=== PATIENT | female | born 1990 | race Caucasian/White ===

== ENCOUNTER 2018-10-26 01:32 | Outpatient (CLI) | payer MEDICAID, SELFPAY ==
[2018-10-26 02:12] LABS: Color, Urine Yellow (Yellow); Glucose, Dipstick Normal (Normal); Ketone-Dipstick Negative (Negative); Leukocyte Esterase-Dipstick 25 /ul (Negative); Mucous, Urine 0 SEEN /hpf (<or=2+); Nitrite-Dipstick Negative (Negative); Occult Blood-Urine 50 /ul (Negative); Protein-Dipstick Negative (Negative); Specific Gravity, Urine 1.005 (1.002-1.030); Urine Bilirubin Dipstick Negative (Negative); Urine Clarity Clear (Clear); Urine Urobilinogen Normal (Normal); Urine pH 6.5 (5.0 - 8.0)
[2018-10-26 02:14] VITALS: BMI 39.3
--- NOTE | 2018-10-26 02:18 | OB.TRI.HP_ITS ---
- Problem List (1) uterine contractions in third trimester, antepartum Status: Acute (2) History of delivery, currently in third trimester Status: Acute (3) Decreased movement affecting management of Status: Acute Qualifiers: Fetus number: single or unspecified fetus Trimester: third trimester Qualified Code(s): O36.8130 - Decreased movements, third trimester, not applicable or unspecified (4) Chronic hypertension affecting Status: Chronic History of Present Illness Date of Service: 10/26/18 Was patient seen by the physician?: No Reason For Visit: REDUCED MOVEMENT Date of Service: 10/26/18 Final DIDIER: 12/29/18 Final DIDIER Source: US <20 weeks Gestational age: 30 Weeks and 6 Days History of Present Illness: Patient is a 28 y/o presenting to triage reporting increased lower abdominal cramping and decreased movement. Patient history significant for previous pre-term delivery and chronic HTN. Patient also reports IOL for pre- eclampsia with severe features in a previous . Patient denies VB, LOF or vaginal discharge. PAtient last seen in office by a provider and cervix was closed/thick/high at that time. Patient is taking [place] injections as ordered. Allergies No Known Allergies Allergy (Verified 06/22/16 04:49) Laboratory Studies: Laboratory Tests 10/26/18 Range/Units 02:00 Urine Color Yellow (Yellow) Urine Clarity Clear (Clear) Urine pH 6.5 (5.0 - 8.0) Ur Specific [place] 1.005 (1.002-1.030) Urine Protein Negative (Negative) mg/dl Urine Glucose (UA) Normal (Normal) mg/dl Urine Ketones Negative (Negative) mg/dl Urine Occult Blood 50 H (Negative) /ul Urine Nitrite Negative (Negative) Urine Bilirubin Negative (Negative) mg/dL Urine Urobilinogen Normal (Normal) mg/dl Ur Leukocyte Esterase 25 H (Negative) /ul Review of Systems Constitutional: Denies: Chills, Fever, Weight Change HEENT: Denies: Head Aches, Sinus Congestion, Sinus Drainage Cardiovascular: Denies: Chest Pain, Palpitations Respiratory: Denies: Cough, Shortness of breath at rest, Sputum production Gastrointestinal: Denies: Abdominal Pain, Nausea, Vomiting Genitourinary: Denies: Dysuria Musculoskeletal: Denies: Joint Pain, Joint Tenderness Skin: Denies: Rash, Wounds Neurological: Denies: Numbness, Tingling, Focal weakness Psychiatric: Denies: Anxiety, Depression, Homicidal Ideations, Suicidal Ideations Hematologic/ Lymphatic: Denies: Easy Bruising, Easy Bleeding Comment: See nurses note for full ROS/PE Physical Exam Vitals: See nurses note for vital signs - patient is afebrile and normotensive General: Alert, Oriented x3, No apparent distress HEENT: Atraumatic, Normocephalic. 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 Negative for: Vulvar lesions Estimated gestational size: Appropriate for gestational size Presentation: Cephalic Cervix Dilation (cm): 0 Station: -3 Effacement (%): 0 NST - FHR Rate Baby A Baseline: 130 Variability:: Moderate Accelerations:: 15 x 15 Decelerations:: None NST Reactive:: Yes, Appropriate for gestational age FHR Category:: Category I Uterine Activity:: Uterine irritability noted most times - 1-2 palpable contractions in 20 minute period Impression/Plan 28 y/o @ 30+6 weeks, Decreased Movement, Pre-term Contractions, Category I FHT P: 1) [facility] teaching and PTL precautions reviewed 2) Cervix closed at this time - no evidence of PTL noted 3) Discharge to home - patient [facility] as scheduled. Marissa CARDOSO
[2018-10-26 02:19] LABS: Bacteria RARE /hpf (None Seen); Red Blood Cells-Urine 0-5 SEEN /hpf (0-5); Squamous Epithelial Cells - UA 0-5 SEEN /hpf (5-10); White Blood Cells 0-5 SEEN /hpf (0-5)
== END 2018-10-26 03:00 | disposition home or self-care (01) ==
LOC: WPOUT 01:38 → WP 01:40
PROVIDERS: Visit Provider Advanced Practice Midwife
DX: O36.8130 Decreased fetal movements, third trimester, not applicable or unspecified (principal); Z3A.30 30 weeks gestation of pregnancy; O16.3 Unspecified maternal hypertension, third trimester
CPT/HCPCS: 59025; 59050; 81001; 99218; G0378

== ENCOUNTER 2018-11-28 23:46 | Outpatient (CLI) | payer MEDICAID, SELFPAY ==
[2018-11-29 00:14] VITALS: BMI 38.9
--- NOTE | 2019-01-18 19:12 | OB.TRI.PN ---
Progress Notes Date of Service: 11/30/18 Progress Note: Patient presented with complaint of vaginal fluid leakage and pink discharge. O: No vaginal discharge or fluid leakage with exam per nursing. ROM plus negative FHT 135, moderate variability, accels, reactive NST Mild irregular contractions Cervical exam /-3 A: Vaginal Discharge P: 1)Negative for rupture of membranes. 2) Discharge home.
== END 2018-11-29 00:50 | disposition home or self-care (01) ==
LOC: WPOUT 11-29 00:06 → WP 11-29 00:07
PROVIDERS: Visit Provider Obstetrics & Gynecology
DX: O26.899 Other specified pregnancy related conditions, unspecified trimester (principal); N89.8 Other specified noninflammatory disorders of vagina; Z3A.00 Weeks of gestation of pregnancy not specified
CPT/HCPCS: 59025; 59050; 99218; G0378

== ENCOUNTER 2018-11-30 10:50 | Outpatient (CLI) | payer MEDICAID, SELFPAY ==
[2018-11-29 00:14] VITALS: BMI 38.9
[2018-11-30 11:05] VITALS: BMI 38.6
[2018-11-30 11:32] LABS: ROM Internal Control Test YES-OK TO RESULT pt. (Internal QC); ROM Patient Test Negative (Negative)
--- NOTE | 2018-12-02 07:51 | OB.TRI.PN ---
Progress Notes Date of Service: 11/30/18 Progress Note: Female at 35w6d for complaint of pink vaginal discharge and unsure if her water broke. Denies any vaginal bleeding or contractions. O: ROM Plus negative NST reactive 130, moderate variability, accels, no decels, no contractions A: Vaginal Discharge P: 1) ROM plus negative, no signs of active ROM per nursing. 2) Discharge home. Laboratory Studies: Laboratory Tests 11/30/18 Range/Units 11:00 Vag Amniotic Fld Detect Negative (Negative)
== END 2018-11-30 12:10 | disposition home or self-care (01) ==
LOC: WPOUT 10:56 → WP 10:56
PROVIDERS: Referring Provider Advanced Practice Midwife; Visit Provider Advanced Practice Midwife
DX: O26.893 Other specified pregnancy related conditions, third trimester (principal); N89.8 Other specified noninflammatory disorders of vagina; Z3A.35 35 weeks gestation of pregnancy
CPT/HCPCS: 59025; 59050; 84112; 99218; G0378

== ENCOUNTER 2018-12-05 11:56 | Outpatient (CLI) | payer MEDICAID, SELFPAY ==
[2018-12-05 12:40] LABS: Hematocrit 30.7 % (37-47); Hemoglobin 10.5 g/dL (12.0-15.0); Mean Corp Hgb Conc 34.2 g/dL (32-36); Mean Corpuscular Hgb 33.1 pg (27.0-32.0); Mean Corpuscular Volume 96.8 fL (81-99); Mean Platelet Vol. 11.1 fl (6.2-12.0); Platelet Count 210 K/mm3 (150-450); RBC Distribution Width CV 13.5 % (11.6-14.6); RBC Distribution Width SD 48.1 fl (35.1-43.9); Red Blood Count 3.17 M/mm3 (4.2-5.4); White Blood Count 10.8 K/mm3 (4.4-11.0)
[2018-12-05 12:45] LABS: Partial Thromboplast Time 26.9 Seconds (24.1-36.2); Prothrombin Time (Protime)PT. 12.9 SECONDS (11.7-14.9)
[2018-12-05 12:50] VITALS: BMI 38.9
[2018-12-05 13:18] LABS: AST(SGOT) 12 U/L (15-37); Alanine Aminotransfer ALT/SGPT 20 U/L (13-56); Creatinine, Serum 0.55 mg/dL (0.55-1.02); EST Glomerular Filtration Rate 141 mL/min (>60); Est Glom Filt Rate - Afr Amer 171 mL/min (>60); Estimated Creatinine Clearance 139.48 ml/min; Uric Acid 3.9 mg/dL (2.6-6.0)
[2018-12-05 13:19] LABS: Protein, Urine (Random) 15.9 mg/dL (<11.9); Protein:Creat Ratio 181 mg/g CRE (0-200)
[2018-12-05] MEDS: Nalbuphine 10 MG/ML Ampul IV (13:23)
[2018-12-05] MEDS: 0.9% Saline Lock 10 ML Syringe IV ×3 (13:24→13:40)
[2018-12-05] MEDS: proMETHazine 25 MG/ML Syringe IV (13:30)
--- NOTE | 2018-12-05 22:06 | OB.TRI.NOTE ---
History of Present Illness Reason For Visit: R/O PRE E Date of Service: 12/05/18 Final DIDIER: 12/29/18 Final DIDIER Source: US <20 weeks Gestational age: 36 Weeks and 4 Days Allergies No Known Allergies Allergy (Verified 06/22/16 04:49) Laboratory Studies: Laboratory Tests 12/05/18 12/05/18 12/05/18 Range/Units 13:00 12:25 12:25 WBC (4.4-11.0) K/mm3 RBC (4.2-5.4) M/mm3 Hgb (12.0-15.0) g/dL Hct (37-47) % MCV (81-99) fL MCH (27.0-32.0) pg MCHC (32-36) g/dL RDW Std Deviation (35.1-43.9) fl RDW Coeff of Trever (11.6-14.6) % Plt Count (150-450) K/mm3 MPV (6.2-12.0) fl PT 12.9 (11.7-14.9) SECONDS INR 1.0 APTT 26.9 (24.1-36.2) Seconds Creatinine 0.55 (0.55-1.02) mg/dL Estim Creat Clear Calc 139.48 ml/min Est GFR (MDRD) Af Amer 171 (>60) mL/min Est GFR (MDRD) Non-Af 141 (>60) mL/min Uric Acid 3.9 (2.6-6.0) mg/dL AST 12 L (15-37) U/L ALT 20 (13-56) U/L U Random Total Protein 15.9 H (<11.9) mg/dL Urine Creatinine 87.70 (NO RANGE EST.) mg/dL Protein/Creatinin Ratio 181 (0-200) mg/g CRE 12/05/18 Range/Units 12:25 WBC 10.8 (4.4-11.0) K/mm3 RBC 3.17 L (4.2-5.4) M/mm3 Hgb 10.5 L (12.0-15.0) g/dL Hct 30.7 L (37-47) % MCV 96.8 (81-99) fL MCH 33.1 H (27.0-32.0) pg MCHC 34.2 (32-36) g/dL RDW Std Deviation 48.1 H (35.1-43.9) fl RDW Coeff of Trever 13.5 (11.6-14.6) % Plt Count 210 (150-450) K/mm3 MPV 11.1 (6.2-12.0) fl PT (11.7-14.9) SECONDS INR APTT (24.1-36.2) Seconds Creatinine (0.55-1.02) mg/dL Estim Creat Clear Calc ml/min Est GFR (MDRD) Af Amer (>60) mL/min Est GFR (MDRD) Non-Af (>60) mL/min Uric Acid (2.6-6.0) mg/dL AST (15-37) U/L ALT (13-56) U/L U Random Total Protein (<11.9) mg/dL Urine Creatinine (NO RANGE EST.) mg/dL Protein/Creatinin Ratio (0-200) mg/g CRE NST - FHR Rate Baby A Baseline: 125 Variability:: Moderate Accelerations:: 15 x 15 Decelerations:: Variable NST Reactive:: Yes Uterine Activity:: quiet Impression/Plan Reactive NST for chtn and headache in Labs normal. Bp's normal to mildly elevated. (BP of 160's when patient anxious quickly resolved). Headache resolved. Patient given preE precautions by nurse & discharged home. She will f/u in office tomorrow to schedule induction.
== END 2018-12-05 16:23 | disposition home or self-care (01) ==
LOC: WPOUT 11:58 → OBT 12-06 09:39
PROVIDERS: Referring Provider Obstetrics & Gynecology; Visit Provider Obstetrics & Gynecology
DX: O10.919 Unspecified pre-existing hypertension complicating pregnancy, unspecified trimester (principal); R51 Headache; Z3A.36 36 weeks gestation of pregnancy
CPT/HCPCS: 96374; 96375; 36415; 59025; 59050; 82565; 82570; 84156; 84450; 84460; 84550; 85027; 85610; 85730; 99218; A4216; G0378

== ENCOUNTER 2018-12-10 07:05 | Inpatient (IN) | payer MEDICAID, SELFPAY ==
[2018-12-10] MEDS: Lactated Ringers 1,000 ML 50 ML IV (07:40)
[2018-12-10 07:51] VITALS: BMI 38.7
[2018-12-10 08:02] LABS: Absolute Lymphocyte Count 1.82 X10^3/uL (0.83-4.51); Absolute Neutrophil Count 8.6 X10^3/uL (2.0-7.7); Basophil# 0.02 X10^3/uL; Basophil% 0.2 % (0-1); Eosinophil# 0.18 X10^3/uL; Eosinophils% 1.6 % (0-5); Hematocrit 30.6 % (37-47); Hemoglobin 10.5 g/dL (12.0-15.0); Lymphocyte # 1.82 X10^3/ul (4.0); Lymphocyte % 16.1 % (19-41); Mean Corp Hgb Conc 34.3 g/dL (32-36); Mean Corpuscular Hgb 33.1 pg (27.0-32.0); Mean Corpuscular Volume 96.5 fL (81-99); Mean Platelet Vol. 10.9 fl (6.2-12.0); Monocyte# 0.59 X10^3/uL; Monocyte% 5.2 % (0-10); NRBC Flagged by Analyzer 0 % (0-5); Neutrophil # 8.61 X10^3/uL (2.7-7.7); Neutrophil % 76.3 % (47-70); Platelet Count 199 K/mm3 (150-450); RBC Distribution Width CV 13.7 % (11.6-14.6); RBC Distribution Width SD 48.8 fl (35.1-43.9); Red Blood Count 3.17 M/mm3 (4.2-5.4); White Blood Count 11.3 K/mm3 (4.4-11.0)
[2018-12-10] MEDS: Oxytocin 30 units/NS 500 ml 30 UNITS/500 ML IV.SOLN IV (08:12)
--- NOTE | 2018-12-10 08:34 | HP.PCM_ITS ---
History Date of Admission: 06/22/16 Final DIDIER: 12/29/18 Final DIDIER Source: US <20 weeks Gestational age: 37 Weeks and 2 Days History of this : This is a 28 year-old, G [], P [], at 37 weeks gestational age. Medical History: Medical History (Last Updated 12/10/18 @ 17:21 by Arden Lance) Depression F32.9 Chronic hypertension affecting O10.919 Allergies No Known Allergies Allergy (Verified 06/22/16 04:49) Home Medications: Home Medications Labetalol [Trandate (Beta Chencho)] 400 mg PO BID 03/21/16 Ferrous Sulfate [Iron] 325 mg PO DAILY 11/29/18 Vits [Prenatabs FA] 1 tab PO DAILY 11/29/18 Smoking Status: Current every day smoker Substance Use Type: Benzodiazepines Number of Fetus(es): 1 NST - FHR Rate Baby A Baseline: 135 Variability:: Moderate Accelerations:: None NST Reactive:: Yes Uterine Activity:: quiet History Past Pregnancies: Past Pregnancies Delivery Date Name GA/Weeks Outcome Route Weight Infant Gender Labor Length Anesthesia Delivery Location Provider FOB Labs: see [facility] prenatals Physical Exam General: Alert, Oriented x3 Abdomen: Soft, Non Tender, Non-Distended Neurological: Cranial nerves II-XII grossly intact 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 ADmit to L&D Chtn & IUGR - proceed with induction per M recommendations. Patient is s/p amniotomy & on pitocin. GBS negative. Routine care.
[2018-12-10 08:54] LABS: Amphetamine Urine VISTA NEGATIVE (<1000 ng/mL); Barbiturate Urine VISTA NEGATIVE (< 200 ng/mL); Benzodiazepine Urine VISTA NEGATIVE (< 200 ng/mL); Cocaine Urine VISTA NEGATIVE (< 300 ng/mL); Ecstacy Urine VISTA POSITIVE (< 500 ng/mL); Methadone Urine VISTA NEGATIVE (< 300 ng/mL); PCP Urine VISTA NEGATIVE (< 25 ng/mL); THC Urine VISTA NEGATIVE (< 50 ng/mL); Vista UDS pH Range 6
[2018-12-10] MEDS: Oxytocin 30 units/NS 500 ml 30 UNITS/500 ML IV.SOLN 334 UNITS IV (17:13)
--- NOTE | 2018-12-10 17:28 | PCM.OPRPT ---
Vaginal Delivery Maternal Presentation: Medically Indicated Induction Method of Induction: Pitocin, Amniotomy Medical Reason for Induction: - - (1) Chronic hypertension (2) IUGR Amniotic Fluid Description: Clear Final DIDIER: 12/29/18 Gestational age: 37 Weeks and 2 Days Date of Procedure: 12/10/18 Pre-Operative Diagnosis: (1) Chronic hypertension (2) IUGR Post-Operative Diagnosis: Same Surgery/ Procedure Performed: Spontaneous Vaginal Delivery Type of Anesthesia: None Description of Procedure: Called to room as patient was . Infant easily delivered & placed on maternal abdomen. 3VC clamped & cut in delayed fashion. Placenta delivered with gentle traction. Good uterine tone obtained. Presentation: Vertex Placental Delivery Description: Spontaneous Placenta Disposition: [facility] Cord Vessel Description: 3 Vessels Cord Entanglement: None Estimated Blood Loss: 200ml A gender: Female - Raynie (1 minute): 8 (5 minute): 9 Episiotomy Description: None Laceration: None Medications given after delivery: IV Pitocin Complications: None
[2018-12-10] MEDS: Acetaminophen 500 MG Tablet 1000 MG PO (19:34)
[2018-12-10] MEDS: 0.9% Saline Lock 10 ML Syringe IV (19:45)
[2018-12-10] MEDS: Labetalol 200 MG Tablet 400 MG PO (21:36)
[2018-12-11] VITALS (7 sets, daily range): BP systolic 114–138; BP diastolic 63–79; PULSE 62–79; RESP 16–18; TEMP 36.1–36.6; O2SAT 97–99
[2018-12-11] MEDS: Acetaminophen 500 MG Tablet 1000 MG PO (03:05)
--- NOTE | 2018-12-11 08:32 | PN.OBGYN_ITS ---
Subjective: Patient denies headache or visual changes. Average lochia. Pain well controlled. - Physical Exam General: Alert, Cooperative, No apparent distress Abdomen: Soft, Non-Distended, Tender - Minimally, fundus is firm Extremities: Edema - Trace, - - 2+ DTRs, no clonus Vital Signs Temp Pulse Resp BP Pulse Ox 97.6 F L 66 18 138/78 H 98 12/11/18 08:11 12/11/18 08:11 12/11/18 08:11 12/11/18 08:11 12/11/18 08:11 Oxygen Delivery Method Room Air Weight: 105.7 kg Body Mass Index (BMI) 38.7 Intake and Output for Last 24 Hours 12/09/18 12/10/18 12/11/18 23:59 23:59 23:59 Intake Total 979.70 / 979.70 Output Total 1900 / 1900 Balance -920.30 / -920.30 Laboratory Tests Past 24 Hrs 12/10/18 12/10/18 07:40 08:00 Urine Opiates Screen NEGATIVE Urine Methadone Screen NEGATIVE Ur Barbiturates Screen NEGATIVE Ur Phencyclidine Scrn NEGATIVE Ur Amphetamines Screen NEGATIVE U Methamphetamin-MDMA POSITIVE H U Benzodiazepines Scrn NEGATIVE Urine Cocaine Screen NEGATIVE U Cannabinoids Screen NEGATIVE Ur Drug Screen Comment Blood Type O POSITIVE Antibody Screen NEGATIVE Medical Necessity - Tobacco Use Smoking Status: Current every day smoker Assessment/Plan All Active Problems (Last Updated 12/10/18 @ 17:21 by Arden Lance) uterine contractions in third trimester, antepartum (Acute) History of delivery, currently in third trimester (Acute) Decreased movement affecting management of (Acute) day #1 status post vaginal delivery Patient is doing well, is doing well and breast-feeding. Gestational hypertension, blood pressures stable on labetalol. Patient would li ke discharge home today. No evidence of preeclampsia. Will check labs and if blood pressures and labs are normal throughout the day, would be okay to discharge home later this evening.
--- NOTE | 2018-12-11 08:34 | DCINST_ITS ---
Discharge Diet: No Restrictions Discharge Activity: Return to Normal Activity, May not drive while taking narcotic pain medications., May Shower May resume sexual activity in: 4-6 weeks Additional Activity Instructions:: Nothing in the vagina for 4-6 weeks. You may return to work/school in 6 weeks. Call your doctor if your incision/area has: Continuous Slow Oozing, Sudden Increased Bleeding, Increased Pain/ Swelling, Increased Redness, Foul Smelling Discharge Additional Instructions: If you experience any of the following, contact your healthcare provider. * Bleeding that soaks a pad every hour for 2 hours * Fever 100.4 or higher * Unrelieved incision or abdominal pain * Swelling, redness, discharge or bleeding from your incision or episiotomy site * Your incision begins to separate * Problems urinating (including inability to urinate or burning while urinating). * Visual changes * Severe headache * Flu-like symptoms * Pain or redness in one of both of your breasts * Pain, warmth, tenderness or swelling in your legs, especially the calf area * Frequent nausea and vomiting * Symptoms of depression or anxiety If you experience any of the following, call 911 or go to the nearest Emergency Room. * Chest pain * Problems breathing * Seizure activity * Partial or complete paralysis of a body part, slurred speech, weakness or drooping of the face, or a sudden inability to walk or hold your balance Allergies/Adverse Reactions: Allergies No Known Allergies Allergy (Verified 06/22/16 04:49) Medications to take at Discharge Labetalol [Trandate (Beta Chencho)] 400 mg PO BID 03/21/16 Ferrous Sulfate [Iron] 325 mg PO DAILY 11/29/18 Vits [Prenatabs FA ] 1 tab PO DAILY 11/29/18 Ibuprofen [Motrin] 600 mg PO Q6H PRN #60 tab 12/11/18 The following prescriptions were given: Ibuprofen [Motrin] 600 mg PO Q6H PRN #60 tab PRN Reason: Pain Transmission Status: Pending to [facility] Please Follow Up With: Arden Lance - [phone] When: Call to make an appointment with your doctor in 3-7 days or as needed nad 6 weeks Primary Care Physician: Care Physician,No Primary [Primary Care Provider] - Test Results: Test results from this visit will be discussed in further detail at your follow- up appointment, if applicable.
[2018-12-11] MEDS: Ibuprofen 600 MG Tablet PO ×2 (09:06→20:55)
--- NOTE | 2018-12-11 09:30 | ED.RN ---
Patient's blood pressure 117/75. Pulse 72. Dr. Kaminski was called about switching order from 400 mg of Trandate BID to 200 mg BID as patient reports her dose having to be decreased after her last . Verbal order obtained to decrease dose to Trandate 200 mg BID. Patient aware of change in dose. Will continue to monitor.
[2018-12-11] MEDS: Labetalol 200 MG Tablet PO ×2 (09:51→20:55)
[2018-12-11] MEDS: Prenatal Vits Tablet 1 TABLET PO (11:57)
[2018-12-11 14:03] LABS: Hematocrit 31.5 % (37-47); Hemoglobin 10.7 g/dL (12.0-15.0); Mean Corpuscular Hgb 32.9 pg (27.0-32.0); Mean Corpuscular Volume 96.9 fL (81-99); Mean Platelet Vol. 10.3 fl (6.2-12.0); Platelet Count 211 K/mm3 (150-450); RBC Distribution Width CV 13.3 % (11.6-14.6); RBC Distribution Width SD 47.6 fl (35.1-43.9); Red Blood Count 3.25 M/mm3 (4.2-5.4); White Blood Count 10.6 K/mm3 (4.4-11.0)
[2018-12-11 14:19] LABS: ALB/GLOB Ratio 0.7 RATIO (0.9-2.4); AST(SGOT) 17 U/L (15-37); Alanine Aminotransfer ALT/SGPT 20 U/L (13-56); Albumin, Serum 2.9 g/dL (3.2-5.0); Alkaline Phosphatase 117 U/L (45-117); Anion Gap 6 (5-15); BUN 11 mg/dL (7-18); BUN/Creat Ratio 15.2 RATIO (10-20); Calcium,Total 8.7 mg/dL (8.5-10.1); Chloride 110 mmol/L (98-107); Creatinine, Serum 0.72 mg/dL (0.55-1.02); EST Glomerular Filtration Rate 103 mL/min (>60); Est Glom Filt Rate - Afr Amer 125 mL/min (>60); Estimated Creatinine Clearance 106.55 ml/min; Globulin 3.9 g/dL (2.2-4.2); Glucose 94 mg/dL (74-106); Potassium 4.3 mmol/L (3.5-5.1); Protein, Total 6.8 g/dL (6.4-8.2); Sodium Level 140 mmol/L (136-145)
[2018-12-12 02:24] VITALS: BP 120/66; PULSE 64; RESP 18; TEMP 35.9
--- NOTE | 2018-12-12 09:09 | PCM.PN.OB ---
Subjective: pt seen at bedside, doing well. pt reports good pain control. lochia mild. - Physical Exam General: Alert, Oriented x3 Abdomen: Soft, Non Tender, Non-Distended, - - fundus firm Extremities: No Calf Tenderness Vital Signs Temp Pulse Resp BP Pulse Ox 96.6 F L 64 18 120/66 98 12/12/18 02:24 12/12/18 02:24 12/12/18 02:24 12/12/18 02:24 12/11/18 08:11 Oxygen Delivery Method Room Air Weight: 105.7 kg Body Mass Index (BMI) 38.7 Intake and Output for Last 24 Hours 12/10/18 12/11/18 12/12/18 23:59 23:59 23:59 Intake Total 979.70 / 979.70 Output Total 1900 / 1900 Balance -920.30 / -920.30 Laboratory Tests Past 24 Hrs 12/11/18 12/11/18 13:48 13:48 WBC 10.6 RBC 3.25 L Hgb 10.7 L Hct 31.5 L MCV 96.9 MCH 32.9 H MCHC 34.0 RDW Std Deviation 47.6 H RDW Coeff of Trever 13.3 Plt Count 211 MPV 10.3 Sodium 140 Potassium 4.3 Chloride 110 H Carbon Dioxide 24.0 Anion Gap 6 BUN 11 Creatinine 0.72 Estim Creat Clear Calc 106.55 Est GFR (MDRD) Af Amer 125 Est GFR (MDRD) Non-Af 103 BUN/Creatinine Ratio 15.2 Glucose 94 Calcium 8.7 Total Bilirubin 0.10 L AST 17 ALT 20 Alkaline Phosphatase 117 Total Protein 6.8 Albumin 2.9 L Globulin 3.9 Albumin/Globulin Ratio 0.7 L Medical Necessity - Tobacco Use Smoking Status: Current every day smoker Assessment/Plan All Active Problems (Last Updated 12/10/18 @ 17:21 by Arden Lance) uterine contractions in third trimester, antepartum (Acute) History of delivery, currently in third trimester (Acute) Decreased movement affecting management of (Acute) PPD#2, doing well routine care pain mgmt dc home
[2018-12-12 09:10] VITALS: BP 143/76; PULSE 75; RESP 16; TEMP 36.1; O2SAT 96
[2018-12-12 09:16] VITALS: BP 143/76; PULSE 75; RESP 16; TEMP 36.1; O2SAT 97
[2018-12-12] MEDS: Prenatal Vits Tablet 1 TABLET PO (09:32)
[2018-12-12] MEDS: Ibuprofen 600 MG Tablet PO (09:32)
== END 2018-12-12 10:10 | disposition home or self-care (01) | DRG 560 ==
PROVIDERS: Obstetrics & Gynecology; Admitting Provider Obstetrics & Gynecology; Referring Provider Obstetrics & Gynecology; Visit Provider Obstetrics & Gynecology
DX: O36.5930 Maternal care for other known or suspected poor fetal growth, third trimester, not applicable or unspecified (principal); O13.4 Gestational [pregnancy-induced] hypertension without significant proteinuria, complicating childbirth; O99.334 Smoking (tobacco) complicating childbirth; Z3A.37 37 weeks gestation of pregnancy; Z37.0 Single live birth
CPT/HCPCS: 59050; 80053; 80307; 85025; 85027; 86850; 86900; 86901; 99218; J7120; A4216; G0378

== ENCOUNTER 2018-12-16 15:25 | Emergency (ER) | payer MEDICAID, SELFPAY ==
[2018-12-16 15:27] VITALS: BP 158/89; PULSE 60; RESP 16; TEMP 36.3; O2SAT 96; BMI 36.6
--- NOTE | 2018-12-16 15:42 | RAD_ITS ---
STUDY: X-RAY - SACRUM/COCCYX REASON FOR EXAM: Female, 28 years old. back pain TECHNIQUE: 3 view(s) of the sacrum and coccyx were obtained. COMPARISON: None. FINDINGS: There is mild degenerative arthrosis of the bilateral sacroiliac joints. Normal visualized sacral ala and fused sacral bodies. Normal sacrococcygeal junction with a normal angulation. Normal coccygeal segments. There is widening of the symphysis pubis compatible with recent state. The presacral soft tissue structures are unremarkable. RAD/Sacrum-Coccyx min 2 Views IMPRESSION: mild diastases of the symphysis pubis. Degenerative changes of the SI joints which are symmetric. No visualized fracture. Electronically Signed: Evelyn Go MD at 16:59 EDT Tel , Service support ,
--- NOTE | 2018-12-16 15:42 | RAD_ITS ---
STUDY: X-RAY CHEST REASON FOR EXAM: Female, 28 years old. back pain TECHNIQUE: PA and lateral views of the chest. COMPARISON: None. FINDINGS: There is a well-circumscribed nodule within the left lower lobe measuring 0.6 mm. There is no demonstrated pleural abnormality. Normal size heart. Normal mediastinum and suman. Normal visualized pulmonary arteries. Normal visualized aortic arch and descending thoracic aorta. Normal visualized thoracic spine. Normal visualized ribs, clavicles, and shoulders. There is no demonstrated abnormality of the visualized soft tissue structures of the upper abdomen. RAD/Chest PA and Lateral IMPRESSION: Small nodule right lower lobe which most likely represents a small focus of old granulomatous disease no evidence of acute focal infiltrate. No visualized fracture. Electronically Signed: Evelyn Go MD at 16:58 EDT Tel , Service support ,
--- NOTE | 2018-12-16 15:48 | ED.VIS.GEN ---
History of Present Illness Chief Complaint: Hypertension Informant: Patient Onset: Days Context: Gradual Onset Timing: Intermittent Current Severity: Moderate Maximum Severity: Moderate Narrative: The patient presents with pain near her sacrum that radiates up her back. The patient is status post spontaneous vaginal delivery. She was treated for -induced hypertension, but never had preeclampsia or eclampsia. She states that her blood pressures been doing better and they actually decreased her labetalol from 400 mg twice daily to 200 mg twice daily. She states over the past few days, she noticed that when she sits, she gets pain more in her tailbone. She also has some pain that goes up her back when she moves around. She denies chest pain or shortness of breath. She denies any pain that radiates down the legs. She is had no abdominal pain. She states that her vaginal bleeding has significantly slowed. She said no fever chills. She cannot recall any injury. The patient did not have spinal or epidural. Prior similar symptoms: No Recent Illness/Hospitalization: Yes Past Medical History - Allergies and Home Meds Allergies/Adverse Reactions: Allergies No Known Allergies Allergy (Verified 12/16/18 15:27) Primary Care Physician: Faith Stanton MD [STAFF PHYSICIAN] - Prior records reviewed: Yes Past Medical History: - Surgical History: no surgical history Smoking Status: Current every day smoker Review of Systems General: Denies: Chills, Fever, Sweats Eyes: Denies: Visual changes - bilaterally, Diplopia ENT: Denies: Rhinorrhea, Sore throat Cardiovascular: Denies: Chest pain, Palpitations Respiratory: Denies: Dyspnea, Cough, Dyspnea on exertion Gastrointestinal: Denies: Abdominal pain, Nausea, Vomiting, Diarrhea, Melena, Hematochezia Genitourinary: Denies: Dysuria, Hematuria, Frequency Musculoskeletal: Reports: Back pain Skin: Denies: Rash, Wounds Neurological: Denies: Headache, Weakness, Numbness Physical Exam Vital Signs/Narrative: Vital Signs Temp Pulse Resp BP Pulse Ox 12/16/18 15:27 97.3 F L 60 16 158/89 H 96 Inital Vital Signs reviewed: Yes General: Well nourished, Well developed, No Acute Distress Head: Normocephalic, Atraumatic Eyes: Perrl, EOMI ENT: Moist mucous membranes, No rhinorrhea Neck: Supple, Nontender Cardiovascular: Regular rate, Regular rhythm, No murmurs Respiratory: No distress, CTA bilaterally, Chest nontender Abdomen: Soft, Nontender, Nondistended, Normal bowel sounds Back: Nontender, Normal Inspection Extremities: Nontender, No edema Skin: Normal color, No rash Neurological: Alert, Oriented x3, Cranial nerves II-XII grossly intact, Normal Strength, Normal Sensation Psychological: Normal affect, Normal Mood Diagnostic/Tx/Re-eval Chest X-Ray - ED: 2 View, Read by ED Physician, Read by Radiologist, Normal, Heart, Lungs, Mediastinum Clinical Impression(s) from Imaging Studies Chest X-Ray 12/16/18 15:42 IMPRESSION: Small nodule right lower lobe which most likely represents a small focus of old granulomatous disease no evidence of acute focal infiltrate. No visualized fracture. Electronically Signed: Evelyn Go MD at 16:58 EDT Tel , Service support , Sacrum and Coccyx X-Ray 12/16/18 15:42 IMPRESSION: mild diastases of the symphysis pubis. Degenerative changes of the SI joints which are symmetric. No visualized fracture. Electronically Signed: Evelyn Go MD at 16:59 EDT Tel , Service support , Abnormal Lab Results 12/16/18 12/16/18 12/16/18 16:05 16:05 16:05 WBC 9.7 RBC 3.24 L Hgb 10.8 L Hct 31.5 L MCV 97.2 MCH 33.3 H MCHC 34.3 RDW Std Deviation 47.8 H RDW Coeff of Trever 13.3 Plt Count 258 MPV 10.6 PT 13.1 INR 1.0 APTT 27.7 Creatinine 0.61 Estim Creat Clear Calc 125.76 Est GFR (MDRD) Af Amer 151 Est GFR (MDRD) Non-Af 125 Uric Acid 6.1 H AST 16 ALT 27 Urine Color Urine Clarity Urine pH Ur Specific [place] Urine Protein Urine Glucose (UA) Urine Ketones Urine Occult Blood Urine Nitrite Urine Bilirubin Urine Urobilinogen Ur Leukocyte Esterase Urine RBC Urine WBC Ur Squamous Epith Cells Urine Bacteria Urine Mucus U Random Total Protein Urine Creatinine Protein/Creatinin Ratio 12/16/18 12/16/18 16:25 16:25 WBC RBC Hgb Hct MCV MCH MCHC RDW Std Deviation RDW Coeff of Trever Plt Count MPV PT INR APTT Creatinine Estim Creat Clear Calc Est GFR (MDRD) Af Amer Est GFR (MDRD) Non-Af Uric Acid AST ALT Urine Color Елена Urine Clarity Sl. Cloudy Urine pH 6.0 Ur Specific [place] 1.020 Urine Protein 100 H Urine Glucose (UA) Normal Urine Ketones Negative Urine Occult Blood 250 H Urine Nitrite Negative Urine Bilirubin Negative Urine Urobilinogen Normal Ur Leukocyte Esterase 500 H Urine RBC 10-25 SEEN Urine WBC 25-50 SEEN Ur Squamous Epith Cells 0-5 SEEN Urine Bacteria 0 SEEN Urine Mucus 0 SEEN U Random Total Protein 60.4 H Urine Creatinine 216.00 Protein/Creatinin Ratio 280 H - Medical Decision Making The patient's pain does seem entirely muscular. Its in her low back. Sometimes, she gets tightness in her upper back when she moves or sits. Her reflexes are normal. She has no red flag symptoms. Chest x-ray was obtained. There was no evidence of large cardiac silhouette. Patient was given Toradol and fluids. She was hypertensive, but has been this way throughout the end of her . Patient was given her dose of antihypertensives and repeat blood pressure was within normal limits. Preeclamptic work-up was also pursued. I did review these results with Dr. Menezes, the patient's INSPECTOR PACKER. At this time, given her unremarkable work-up, control of pain, and symptoms I do feel that she is safe for outpatient therapy. She declined and antispasmodics. She will be given lidocaine patch. She is also had her antihypertensives increased. Patient will be discharged home. She was counseled on concerning symptoms and reasons to return. She will follow-up with INSPECTOR PACKER this week. Impression 1. Sacroiliitis status post 2. -induced hypertension ED Disposition - Plan for ED Patient: Disposition: Home or Assisted Living Instructions: BACK SPASM, No Trauma Prescriptions: Lidocaine/Transparent Dressing [Lidocaine 4% Kit] 1 ea TP DAILY #7 kit Prescription Printed Referrals: Faith Stanton MD [STAFF PHYSICIAN] -
[2018-12-16 16:00] VITALS: BP 173/89; RESP 18
[2018-12-16 16:15] LABS: Hematocrit 31.5 % (37-47); Hemoglobin 10.8 g/dL (12.0-15.0); Mean Corp Hgb Conc 34.3 g/dL (32-36); Mean Corpuscular Hgb 33.3 pg (27.0-32.0); Mean Corpuscular Volume 97.2 fL (81-99); Mean Platelet Vol. 10.6 fl (6.2-12.0); Platelet Count 258 K/mm3 (150-450); RBC Distribution Width CV 13.3 % (11.6-14.6); RBC Distribution Width SD 47.8 fl (35.1-43.9); Red Blood Count 3.24 M/mm3 (4.2-5.4); White Blood Count 9.7 K/mm3 (4.4-11.0)
[2018-12-16 16:21] LABS: Prothrombin Time (Protime)PT. 13.1 SECONDS (11.7-14.9)
[2018-12-16 16:22] LABS: Partial Thromboplast Time 27.7 Seconds (24.1-36.2)
[2018-12-16 16:29] LABS: AST(SGOT) 16 U/L (15-37); Alanine Aminotransfer ALT/SGPT 27 U/L (13-56); Creatinine, Serum 0.61 mg/dL (0.55-1.02); EST Glomerular Filtration Rate 125 mL/min (>60); Est Glom Filt Rate - Afr Amer 151 mL/min (>60); Estimated Creatinine Clearance 125.76 ml/min; Uric Acid 6.1 mg/dL (2.6-6.0)
[2018-12-16 16:40] LABS: Bacteria 0 SEEN /hpf (None Seen); Mucous, Urine 0 SEEN /hpf (<or=2+)
[2018-12-16 16:47] LABS: Color, Urine Amber (Yellow); Glucose, Dipstick Normal (Normal); Ketone-Dipstick Negative (Negative); Leukocyte Esterase-Dipstick 500 /ul (Negative); Nitrite-Dipstick Negative (Negative); Occult Blood-Urine 250 /ul (Negative); Protein-Dipstick 100 mg/dl (Negative); Urine Bilirubin Dipstick Negative (Negative); Urine Clarity Sl. Cloudy (Clear); Urine Urobilinogen Normal (Normal)
[2018-12-16 16:58] LABS: White Blood Cells 25-50 SEEN /hpf (0-5)
[2018-12-16 16:59] LABS: Red Blood Cells-Urine 10-25 SEEN /hpf (0-5); Squamous Epithelial Cells - UA 0-5 SEEN /hpf (5-10)
[2018-12-16 17:02] LABS: Protein, Urine (Random) 60.4 mg/dL (<11.9); Protein:Creat Ratio 280 mg/g CRE (0-200)
[2018-12-16 17:15] VITALS: BP 141/83
[2018-12-16] MEDS: Labetalol 200 MG Tablet PO (17:16)
[2018-12-16] MEDS: Ketorolac 30 MG/ML Syringe IM (17:16)
[2018-12-16 17:41] VITALS: BP 137/78; PULSE 64; RESP 18
== END 2018-12-16 17:42 | disposition home or self-care (01) ==
LOC: ED 15:51
PROVIDERS: Emergency Provider Emergency Medicine
DX: O90.89 Other complications of the puerperium, not elsewhere classified (principal); M46.1 Sacroiliitis, not elsewhere classified; O13.5 Gestational [pregnancy-induced] hypertension without significant proteinuria, complicating the puerperium
CPT/HCPCS: 71046; 72220; 81001; 82565; 82570; 84156; 84450; 84460; 84550; 85027; 85610; 85730; 96372; 99284; A4216

== ENCOUNTER 2022-05-26 09:38 | Day surgery (SDC) | payer MEDICAID, SELFPAY ==
--- NOTE | 2022-05-09 17:03 | PCM.HP.BLA ---
History and Physical Date of Admission: 05/26/22 HPI: The patient is a 32 year old female presenting for pre-operative visit. She is scheduled for IUD insertion and laparoscopic bilateral salpingectomy, for permanent contraception and heavy menstrual bleeding on 05/26/2022. Procedure discussed along with risks, benefits and complications. Other alternatives discussed for management. Consent form signed? Yes. ? ? PAST MEDICAL HISTORY PAST MEDICAL HISTORY Diagnosis Date ? Anxiety ? ? Cyst of left ovary 05/14/2018 ? 05/14/18-Left ovary with 4.6cm simple appearing cyst- good flow flow noted to ovary. Follow up ovarian cyst on NT U/S. Kristyn Drake APRN.CNM ? Depression ? ? History of pre-eclampsia 05/14/2018 ? 05/17/18-Records received, per documentation, patient with Chronic HTN with pre-eclampsia with last delivery on 08/28/17, did not require magnesium sulfate. on 07/24/11, had severe pre-eclampsia on magnesium sulfate. Kristyn Drake APRN.MARIA DM 05/14/18-History of Severe Pre-eclampsia with first child. Records request from from previous births at [facility]. Reviewed starting ? Hypertension ? ? ? PAST SURGICAL HISTORY PAST SURGICAL HISTORY Procedure Laterality Date ? NONE ? CURRENT MEDICATIONS Current Outpatient Medications Medication Sig Dispense Refill ? ALPRAZolam (XANAX) 0.5 mg tablet Take 1 tablet by mouth twice daily as needed for anxiety for up to 14 days. 14 tablet 0 ? PARoxetine (PAXIL) 30 mg tablet Take 1 tablet by mouth once daily. 90 tablet 0 ? lisinopril (ZESTRIL, PRINIVIL) 5 mg tablet Take 1 tablet by mouth once daily. 30 tablet 1 ? labetalol (TRANDATE) 200 mg tablet Take 2 tablets by mouth twice daily. 120 tablet 0 ? Current Facility-Administered Medications Medication Dose Route Frequency Provider Last Rate Last Admin ? hydroxyprogest(PF)(preg presv) AutoInjector 275 mg 275 mg SUBCUTANEOUS 1/WK Adriana Crawley APRN.[employer] 275 mg at 08/30/18 1109 ? ? ALLERGIES: Patient has no known allergies. ? PERSONAL HISTORY: SOCIAL HISTORY Social History ? Tobacco Use ? Smoking status: Every Day ? ? Types: Cigarettes ? Smokeless tobacco: Never Vaping Use ? Vaping Use: Never used Substance Use Topics ? Alcohol use: No ? Drug use: No ? FAMILY HISTORY: FAMILY HISTORY FAMILY HISTORY Problem Relation Age of Onset ? Anxiety disorder Mother ? ? Depression Mother ? ? Cervical Cancer Mother ? ? Hypertension Father ? ? Severe ? Depression Father ? ? Anxiety disorder Father ? ? No Known Problems Sister ? ? No Known Problems Brother ? ? No Known Problems Maternal Grandmother ? ? No Known Problems Maternal Grandfather ? ? Breast Cancer Paternal Grandmother ? ? No Known Problems Daughter ? ? No Known Problems Daughter ? ? No Known Problems Son ? ? No Known Problems Son ? ? ? REVIEW OF SYMPTOMS: GENERAL: denies fevers or chills ENDOCRINOLOGY: has not been on steroids Cardiology : denies palpitations or chest pain Respiratory: denies SOB or cough Hematology: denies history of prolonged bleeding or easy bruising or VTE Allergy: Denies history of personal or family history of allergy to anesthesia ? PHYSICAL EXAMINATION: ? VITALS: Blood pressure 118/76, pulse 70, resp. rate 16, height 5' 5.25 (1.657 m), weight 223 lb (101.2 kg), last menstrual period 05/04/2022, SpO2 98 %. ? GENERAL: The patient is well nourished, well hydrated in no acute distress. , The patient is oriented to time, place, and person. NECK: Supple. No lynphadenopathy, normal thyroid, no thyromegaly. LUNGS: Clear to auscultation bilaterally. no wheezes, rhonchi or rales HEART: Regular rate and rhythm, Normal heart sounds, and No murmurs or gallops ? IMPRESSION: Heavy menses, desires sterilization ? PLAN: The risks/benefits/alternatives and personal involved for the planned laparoscopy with bilateral salpingectomy and Mirena IUD insertion were reviewed with the patient. Her questions were answered to her satisfaction and she desires to proceed. Consent was signed. I reviewed with her postop instructions and expectations. ? ? I have reviewed and updated past medical and surgical history, medications and allergies Assessment & Plan Assessment/Plan (1) Menorrhagia: (2) Encounter for IUD insertion: (3) Sterilization:
[2022-05-26] VITALS (8 sets, daily range): BP systolic 96–146; BP diastolic 57–80; PULSE 66–74; RESP 15–18; TEMP 36.1–36.6; O2SAT 94–100; BMI 37.8
[2022-05-26 10:22] LABS: Hematocrit 38.2 % (37-47); Hemoglobin 12.5 g/dL (12.0-15.0); Mean Corp Hgb Conc 32.7 g/dL (32-36); Mean Corpuscular Hgb 31.8 pg (27.0-32.0); Mean Corpuscular Volume 97.2 fL (81-99); Mean Platelet Vol. 10.6 fl (6.2-12.0); Platelet Count 242 K/mm3 (150-450); RBC Distribution Width CV 13.7 % (11.6-14.6); Red Blood Count 3.93 M/mm3 (4.2-5.4); White Blood Count 7.8 K/mm3 (4.4-11.0)
[2022-05-26 10:24] LABS: Internal QC Validated? YES +Cl - CLEAR BKGD; Pregnancy, Urine Negative Negative
[2022-05-26] MEDS: Acetaminophen 500 MG Tablet 1000 MG PO (10:30)
[2022-05-26] MEDS: Celecoxib 200 MG Capsule 400 MG PO (10:30)
[2022-05-26] MEDS: Lactated Ringers 1,000 ML 15 ML IV (10:38)
[2022-05-26] MEDS: Lactated Ringers 1,000 ML 75 ML IV (10:40)
--- NOTE | 2022-05-26 10:41 | DCINST_ITS ---
Discharge Instructions Diet Discharge Diet: No restrictions Activity Discharge Activity: May Drive (in 2-3 days as tolerated), May Shower and May Take a Tub Bath (in 1 week) Return to work on:: 05/29/22 May resume sexual activity in: 1 week Lifting Restrictions: none Dressing / Incision Call your doctor if your incision/area has: Sudden Increased Bleeding and Foul Smelling Discharge Call your doctor if you observe: Fever of 101 or Higher and Using more than 1 pad per hour (for 2 hrs in a row) Remove Dressing in: leave until fall off (your incsions have skin glue, it can get wet. Leave it on for at least 10 days) Cleanse incision/area with: Soap & Water Follow Up Care Please Follow Up With: Jocelyn Kaminski MD When: 2-4 weeks as needed. Call [phone] to make an appointment or with any concerns. Test Results: Test results from this visit will be discussed in further detail at your follow- up appointment, if applicable. Discharge Plan Admission Attending Provider: Jocelyn Kaminski Primary Care Provider: Mckenzie Foote Discharge Orders/Prescriptions Prescriptions: No Action paroxetine HCl 10 mg tablet 20 mg PO DAILY Label Comments: take 1 tablet by mouth once daily alprazolam [Xanax] 0.5 mg Tablet 0.5 mg PO TID PRN (Reason: PRN) lisinopril 5 mg tablet 5 mg PO DAILY Label Comments: take 1 tablet by mouth once daily labetalol 100 MG tablet 400 mg PO BID Referrals / Follow Up: Mckenzie Foote MD [Primary Care Provider] - Disposition Disposition (needs filled in before D/C Order can be placed): Home, Self Care
--- NOTE | 2022-05-26 11:10 | FALS_PTH ---
PATIENT: EVELIO BAHENA [place] [facility] [place][id number] AGE/SX: 32/F ROOM: RE05/26/[address]: Dr. Jocelyn Kaminski MD : 1990 BED: DIS: 05/26/2022 SPEC #: [id number] RECD: 05/26/22 16:43 STATUS: JESS EDEN #: [id number] OLINDA: 05/26/22 11:[address]: Jocelyn Kaminski DEPT: SURGICAL PATHOLOGY RECD BY: Evelina Lomax ENTERED: 05/29/22 12:03 SP TYPE: FALL TUBES OTHR DR: Dr. Mckenzie Foote MD Tissues: Fallopian tube Procedures: Surgery Specimen Level II HEADER OPERATION: Laparoscopic salpingectomy, Mirena IUD insertion PRE-OP DIAGNOSIS: Menorrhagia, IUD insertion, sterilization TISSUE SUBMITTED: Bilateral fallopian tubes MICROSCOPIC DIAGNOSIS Bilateral fallopian tubes, salpingectomy: Bilateral fallopian tubes, no pathologic diagnosis. MARISA:tan 05/30/2022 MICROSCOPIC DESCRIPTION Slides are reviewed. GROSS DESCRIPTION Received in fixative is one container labeled with the patient's name and designated bilateral fallopian tubes. The specimen consists of bilateral fallopian tubes including fimbrial ends measuring 6 cm in length and 0.5 cm in diameter and 3 cm in length and 0.5 cm in diameter. The fallopian tubes are not identified as right or left. Sections reveal unremarkable cut surfaces. Roof Plumber sections are submitted in two cassettes as follows: 1 ? larger fallopian tube, 2 ? smaller fallopian tube, entirely submitted. / James 05/29/2022 TC:4 CPT: 02729 x2
--- NOTE | 2022-05-26 11:23 | PCM.OPRPT ---
Problems Associated Problem List Diagnoses (1) Menorrhagia: (2) Encounter for IUD insertion: (3) Sterilization: Report of Operation Date of Procedure: 05/26/22 Pre-Operative Diagnosis: sterilization request, menorrhagia Post-Operative Diagnosis: same Surgery/Procedure Performed:: Laparoscopic bilateral salpingectomy w/ mirena IUD insertion Description of Surgical Findings:: normal uterus, tubes and ovaries Surgeon: Jocelyn Kaminski staff midwife/apprenticeship director: None Type of Anesthesia: General Anesthesiologist: Emir Staples Special Medications: none Specimen's removed: bilateral fallopian tubes Drains: none Estimated Blood Loss (mL): 5 Fluids Replaced: 500 Description of Procedure: The patient was taken to the operating room where she was prepped and draped in the dorsolithotomy position. A weighted speculum was placed in the vagina and the anterior lip of the cervix was grasped with a tenaculum. The Janine uterine manipulator was placed and the remainder of the instruments were removed from the vagina. Attention was turned to the abdomen. All port sites were infiltrated with 0.5% Marcaine before skin incisions were made. A 5 mm [intraumbilical] incision was made. The anterior abdominal wall was tented up with 2 towel clamps while a 5 mm blade less trocar and sleeve were [directly inserted]. Intraperitoneal placement was confirmed with the laparoscope. The pneumoperitoneum was created and the underlying abdominal contents were intact. The patient was placed in Trendelenburg. Right and left lower quadrant ports were placed under direct visualization lateral to the inferior epigastric vessels. The bowel was swept away and the above findings were noted. The Enseal device was used to clamp seal and transect the antimesenteric portions of the right tube to the cornual insertion of the uterus. The tube was amputated from the uterus and the pedicles were all confirmed to be hemostatic. The same procedure was performed on the contralateral side. The specimens were brought out through a 5 mm port. The pedicles were again examined and found to be hemostatic. The lateral ports were removed under direct visualization and no active bleeding was noted. The pneumoperitoneum was released. The skin incisions were closed with Monocryl suture in a subcuticular fashion and skin glue. The vaginal instruments were removed. The Mirena IUD was inserted in the usual sterile fashion. The uterus sounded 9 cm. The strings were cut to 2 cm. The remainder the instruments were removed and the vaginal sweep was completed by me. The procedure was performed by me with assistance other than as dictated above. All sponge and needle counts were correct and the patient was taken to the recovery room in stable condition. Grafts/Implants Used: none Procedure Start Time: 10:49 Procedure Stop Time: 11:19 Complications none Admit VTE Documentation VTE Present on Admission: No VTE Mechan Device Prophylaxis: SCD's VTE Pharm Prophylaxis ordered?: No Reason prophylaxis not ordered:: Procedure Not Indicated
--- NOTE | 2022-05-26 11:27 | DCINST_ITS ---
Discharge Instructions Diet Discharge Diet: No restrictions Activity Return to work on:: 05/29/22 May resume sexual activity in: 1 week Dressing / Incision Call your doctor if your incision/area has: Sudden Increased Bleeding and Foul Smelling Discharge Call your doctor if you observe: Fever of 101 or Higher and Using more than 1 pad per hour (for 2 hrs in a row) Cleanse incision/area with: Soap & Water Follow Up Care Please Follow Up With: Jocelyn Kaminski MD Test Results: Test results from this visit will be discussed in further detail at your follow- up appointment, if applicable. Discharge Plan Admission Primary Reason for Your Visit: tubal and Mirena IUD insertion Attending Provider: Jocelyn Kaminski Primary Care Provider: Mckenzie Foote Discharge Orders/Prescriptions Prescriptions: New ibuprofen [ibuprofen] 600 MG tablet 600 mg PO Q8H PRN (Reason: Pain) 10 Days Qty: 14 0RF oxycodone 5 MG tablet 5 mg PO Q12H PRN (Reason: severe pain) 3 Days Qty: 5 0RF Continued paroxetine HCl 10 mg tablet 20 mg PO DAILY Label Comments: take 1 tablet by mouth once daily alprazolam [Xanax] 0.5 mg Tablet 0.5 mg PO TID PRN (Reason: PRN) lisinopril 5 mg tablet 5 mg PO DAILY Label Comments: take 1 tablet by mouth once daily labetalol 100 MG tablet 400 mg PO BID Referrals / Follow Up: Mckenzie Foote MD [Primary Care Provider] - Disposition Disposition (needs filled in before D/C Order can be placed): Home, Self Care
[2022-05-26] MEDS: oxyCODONE 5 MG Tablet PO (12:50)
== END 2022-05-26 13:13 | disposition home or self-care (01) ==
LOC: SDC 09:39 → AC 09:41
PROVIDERS: PCP Internal Medicine; Referring Provider Obstetrics & Gynecology; Visit Provider Obstetrics & Gynecology
PROC: (CPT 58661; principal; 2022-05-26 10:55)
DX: Z30.2 Encounter for sterilization (principal); N92.0 Excessive and frequent menstruation with regular cycle; I10 Essential (primary) hypertension; F17.210 Nicotine dependence, cigarettes, uncomplicated; F41.9 Anxiety disorder, unspecified; F32.A Depression, unspecified; Z79.899 Other long term (current) drug therapy; Z30.430 Encounter for insertion of intrauterine contraceptive device
CPT/HCPCS: 58661; 58300; 00840; 81025; 85027; 86850; 86900; 86901; 88302; J7120; C1760; J2405

== ENCOUNTER 2022-11-27 08:00 | Outpatient (RCR) | payer MEDICAID, SELFPAY ==
--- NOTE | 2022-11-27 09:01 | BH.SGPN.GN ---
Behaviors/Verbalizations/Mental Status: []Pt alert and oriented, casually dressed and groomed. Eye contact good. Motor activity appropriate. Speech within normal limits. Affect congruent, mood depressed and anxious. Thoughts linear, logical, no signs of hallucinations or delusions. Reviewed pt?s symptom tracker, suicidal ideation reported as 2/3 which is pt baseline per CSSR screening, denies plan, or active intent as of 11/27/22. Client Response/Progress/Benefit: []Pt responded well to session, actively listening throughout. This is pt?s first day in IOP tx and she is still adjusting to the group environment. Reports feeling anxious about sharing and opted not to process with the group this morning. Narrative Note: []
--- NOTE | 2022-11-27 10:15 | BH.SGPN.GN ---
Behaviors/Verbalizations/Mental Status: []Eye contact is fair. Motor activity is appropriate. Appearance is casual. Speech is Appropriate. Mood is euthymic. Affect is congruent. Thoughts are linear and logical. No evidence of psychosis. Client Response/Progress/Benefit: []Pt participated during the group discussion. Attentive during psychoeducation and actively engaged during experiential activity. Participated during interactive discussion on aspects of fixed mindset. Group identified several aspects of fixed mindset which include: inflexible, belief that one cannot grow, absolute thinking, and all of one's skills, traits, and behaviors can't change. Group identified personal examples of fixed thinking in which pt shared personal fixed thoughts as: I can't succeed and Everyone is better than me. Benefited from increased understanding of personal fixed mindsets and how they can impact mental health. Will continue in IOP to increase healthy coping skills, challenge negative thinking, and prevent decompensation.
--- NOTE | 2022-11-27 13:44 | BH.COMM ---
Communication Note Communication with Client Communication Note: Completed initial paperwork with pt. No changes since intake appointment. Completed the CSSR-S with pt and pt is moderate risk. Pt denies any suicide attempts, but pt reports have fleeting SI with thoughts of methods, but denies ever having intent because of her children. Pt denies any active SI, plan, or intent today. Pt does not have access to guns and her girlfriend is keeping pt's blood pressure medication. Discussed with tx team and Dr. 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
--- NOTE | 2022-11-28 10:10 | BH.SGPN.GN ---
Behaviors/Verbalizations/Mental Status: []Pt alert and oriented, appropriate grooming/appearance. Eye contact good. Motor activity appropriate. Speech within normal limits. Affect congruent, mood depressed and anxious. Thoughts linear, logical, no signs of hallucinations or delusions. Client Response/Progress/Benefit: []Pt was an engaged participant AEB taking notes, engaging in small group discussion and listening attentively to others. Attentive during psychoeducation. Contributed during interactive discussions in which peers attempted to define crisis. Pt identified some examples of potential crisis. Group also worked together to identify unhealthy responses to crisis which included: isolation, self-harm, substance abuse, avoidance, and lashing out. Pt identified personal warning signs as: extreme exhaustion, canceling plans, and lack of self-care. Benefited from increased understanding of crisis and awareness of personal responses to crisis. Pt will continue IOP tx to improve daily functioning, increase healthy coping, and prevent decompensation.
--- NOTE | 2022-11-28 11:05 | BH.SGPN.GN ---
Behaviors/Verbalizations/Mental Status: [] Eye contact is good. Motor activity is appropriate. Appearance is casual. Speech is Appropriate. Mood is anxious. Affect is congruent. Thoughts are linear and logical. No evidence of psychosis Client Response/Progress/Benefit: [] Pt was an active participant in group discussions. Attentive during psychoeducation. In small group pt along with peers developed an active plan for their crisis warning signs. Pt identified two crisis warning signs as well as an action plan for each. One crisis warning sign is exhaustion with an actions plan that involved; open curtains, stretch it out, go outside, exercise. Other warning sign was lack of self-care with an action plan that involved; paint nails, put on make-up, dress up. Benefited from increased awareness of crisis warning signs and by developing crisis intervention strategies. Will continue in IOP to prevent decompensation, stablize mood, and improve functioing. Narrative Note: []
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
--- NOTE | 2022-11-28 13:05 | BH.DR.ITP ---
Initial Treatment Plan Patient Information Visit Information: ADMISSION DATE: EXPECTED LOS: 4-6 weeks Problems/Symptoms Problem #1:: Depression Symptom:: Sadness, hopelessness, guilt, decreased concentration, biological disruption of sleep, low energy, anhedonia, passive thoughts of , passive suicidal ideation Problem #2:: Anxiety Symptom:: Worry, rumination, panic attacks, nightmares, flashbacks, avoidance, hypervigilance
--- NOTE | 2022-11-28 14:39 | BH.MTP ---
Master Treatment Plan Patient Information Program Physician:: Dr. Montero Primary Therapist:: Susan Breen, [facility] Psychiatric Diagnoses Psychiatric Diagnoses:: 1. Major depressive disorder, recurrent, severe without psychosis F33.2 2. PTSD 3. Generalized anxiety disorder Diagnosis Code(s):: F33.2 Estimated LOS Estimated LOS (in weeks):: 6 Problem/Goal #1 Problem/Goal #1 Stated Goal:: Client will decrease depression, feeling of worthlessness, and passive thoughts of due to Major Depression Disorder through Intensive Outpatient Program.? Description of Barriers: Potential barriers include: low self-esteem, distorted thoughts, limited support, impulsivity, and negative core beliefs. Functional Impact: The patient is a 32-year-old single, female with a history of depression, social anxiety and PTSD who is presents with worsening depression over the past year. She was referred by nicoienangle to the [facility] IOP program. The patient states that she has been texting her ex-boyfriend off-and-on and they have had emotional involvement and states that she knows that he is toxic but she cannot let go of him. Her biggest stress today is that she went to the emergency room for chest pain last night and they found a nodule on her left lung and she has an appointment with the pulmonary doctor to find out what is causing this and her chest pain. She endorses crying spells, sadness, hopelessness, worthlessness, guilt, anhedonia, apathy, decreased concentration, decreased motivation, and passive thoughts of . Anxious symptoms impact ability to leave her house. MH symptoms interfering with ability to complete chores/responsibilities at home. Objectives Objective #1: Stated Objective: Client will learn and utilize 2-3 healthy coping strategies to manage depressive symptoms as shown by reduced DSM-5 cross-cutting symptom measure score Interventions: Therapist and group will help client identify triggers and warning signs of depression and will teach client various coping skills to manage client?s symptoms and give client tangible resources to use to regulate emotions. Discharge Criteria: Client will have achieved this goal when has practiced at least 2 healthy coping strategies that successfully manage depressive symptoms and DSM 5 cross-cutting measure shows decrease in depression. Target Date: 01/09/23 Review Date: 12/26/22 Objective #2: Stated Objective: Identify at least 2-3 negative self-talk messages used to reinforce depression and replace thoughts with positive messages. Interventions: Therapist and group will help client identify distorted, negative beliefs about self and replace with more realistic, affirmative messages. Discharge Criteria: Client will have achieved this goal when can verbalize at least 2 negative self-talk messages and effectively replace those thoughts with affirmative messages.? Target Date: 01/09/23 Review Date: 12/26/22 Problem/Goal #2 Problem/Goal #2 Stated Goal:: Client will reduce overall frequency, intensity, and duration of the anxiety so that daily functioning is not impaired.? Description of Barriers: Potential barriers include: low self-esteem, distorted thoughts, limited support, impulsivity, and negative core beliefs. Functional Impact: The patient is a 32-year-old single, female with a history of depression, social anxiety and PTSD who is presents with worsening depression over the past year. She was referred by chandler to the [facility] IOP program. The patient states that she has been texting her ex-boyfriend off-and-on and they have had emotional involvement and states that she knows that he is toxic but she cannot let go of him. Her biggest stress today is that she went to the emergency room for chest pain last night and they found a nodule on her left lung and she has an appointment with the pulmonary doctor to find out what is causing this and her chest pain. She endorses crying spells, sadness, hopelessness, worthlessness, guilt, anhedonia, apathy, decreased concentration, decreased motivation, and passive thoughts of . Anxious symptoms impact ability to leave her house. MH symptoms interfering with ability to complete chores/responsibilities at home. Objectives Objective #1: Stated Objective: Client will learn and implement 2-3 calming skills to reduce overall anxiety and manage anxiety symptoms. Interventions: Therapist and group sessions will help client identify physiological warning signs of anxiety, increase awareness of thoughts that increase anxiety, and identify behaviors that reinforce anxious symptoms. Group and individual counseling will teach client calming skills to help manage anxious symptoms. Discharge Criteria: Client will have achieved this goal when can verbalize at least 2 calming skills and reports skills successfully help reduce anxious symptoms. Target Date: 01/09/23 Review Date: 12/26/22 Objective #2: Stated Objective: Pt will decrease anxious symptoms AEB pt?s score on the DSM 5 cross-cutting measure improve pt?s daily functioning. Interventions: Through groups and individual therapy, pt will be provided education about anxiety?s impact on body and common physiological reaction to anxiety. Therapist will teach pt appropriate breathing techniques and build healthy coping skills to manage daily anxieties. Discharge Criteria: Pt will have met this goal when pt?s score on the DSM 5 cross cutting measure for anxiety has been decreased and per pt?s report daily functioning has improved. Target Date: 01/09/23 Review Date: 12/26/22
--- NOTE | 2022-11-29 10:00 | BH.SGPN.GN ---
Behaviors/Verbalizations/Mental Status: [] Eye contact is good. Motor activity is appropriate. Appearance is casual. Speech is Appropriate. Mood is anxious. Affect is congruent. Thoughts are linear and logical. No evidence of psychosis. Reviewed daily check in sheet and pt reports 1/5 for suicidal ideations and 0/5 for intent. This is below baseline. Client Response/Progress/Benefit: [] Pt participated at times during the group discussions. Attentive. Daily symptom tracker notes 5/5 for anxiety, 3/5 for depression and 2/5 for irritability/self-harm urges. Overall reports improved mood. Able to identify mental health wins which involved completing tasks rather than avoiding. She verbalize that she has significant anxiety, depression, panic and negative thoughts yesterday. It was a bad day. She did not elaborate on the triggers or thoughts that led to our exacerbated her mood yesterday. This is only pt's first week in IOP and she may not feel comfortable elaborating in-front of peers. No progress noted. Benefited from group support, encouragment, and feedback. Will continue in [facility] to maintain safety, prevent decompensation, and increase healthy coping skills. Narrative Note: []
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
--- NOTE | 2022-12-12 10:10 | BH.SGPN.GN ---
Behaviors/Verbalizations/Mental Status: []Eye contact is good. Motor activity is appropriate. Appearance is casual. Speech is Appropriate. Mood is anxious and euthymic. Affect is congruent. Thoughts are linear and logical. No evidence of psychosis. Client Response/Progress/Benefit: []Pt was an active participant in group discussions. Engaged and provided feedback with group on defining anxiety. Along with peers, pt worked to identify the benefits of anxiety. Participated during interactive discussion on how anxiety impacts one physically, cognitively, and behaviorally. Completed worksheet on how anxiety impacts pt physically, cognitively, and behaviorally. Pt shared physically pt experiences increased heart rate, sweating, and butterflies in her stomach. Benefited from increased insight into anxiety's benefits and how diagnosable anxiety impacts functioning. Will continue in IOP tx to promote self-care and thought challenging, and further increase mood stability. Narrative Note: []
--- NOTE | 2022-12-12 11:10 | BH.SGPN.GN ---
Behaviors/Verbalizations/Mental Status: []Pt casually dressed and groomed. Eye contact fair. Motor activity appropriate. Speech within normal limits. Affect congruent, mood anxious. Thoughts linear, logical, no signs of hallucinations or delusions. Client Response/Progress/Benefit: []Pt was a passive participant in full group discussion, however did take notes, attentive to others, and showed increased engagement in small group discussion. Pt identified anxiety safety behaviors for self to include: leave stores, stay home, sleeping, take on others issues, and sleeping. Attentive during psychoeducation on mindfulness and ways to utilize mindfulness techniques to improve anxiety management. The group receptive to learning about belly breathing and grounding tools. Engaged and attentive during group brainstorm of healthy anxiety reduction skills including thought challenging and behavioral changes. Appeared to benefit from practicing in the moment coping skills and increasing repertoire of anxiety management skills. Pt stated reading and walking as skills would like to practice over the next week. Pt will continue IOP tx to increase consistent use of healthy coping skills, challenge negative thinking, and prevent decompensation.
--- NOTE | 2022-12-12 21:26 | BH.MDN ---
Multi-Disciplinary Note Note 45-min Individual: Time Started:: 09:03 Date: 12/12/22 Purpose of session/treatment goals addressed:: Purpose of session was to address goals 1 and 2 from MTP. Eye Contact:: Good Motor Activity:: Appropriate Appearance:: Casual Speech:: Appropriate Mood:: Euthymic Affect:: Congruent Thoughts:: Linear, Logical and No evidence of hallucinations/delusions noted Staff Interventions:: thought challenging, CBT techniques, rapport building, strengths perspective, goal setting and taught coping skills Client Response:: Client responded well to session AEB opening up to therapist. Client reported she's doing better the last few days. Client stated she was able to have a really good conversation with her mom about the impact her childhood trauma has had on her. Client reported now that her mom knows about her past trauma she is more understanding and supportive of client getting treatment. Client stated she is still angry with her dad and when she brought up to him that he lied when she was young, he told her that he didn't know what she was talking about. Client reported she is just going to let it go because she knows she won't get anywhere with her dad. Client stated she has been trying to challenge negative thoughts about being too hard on her mom over the years, but recognizes she didn't know the truth at the time. Client reported she has been trying to remind herself about the positive that has come out of this stressor is having improved relationship with her mom. Client reported she has been following the goals from last individual session of writing down 2-3 small goals each day. Client stated she has found using opposite action to be very helpful in improving her mood. Client stated she has refrained from talking to her ex for two weeks. Client reported she has not had any urges to reach out to him. Client reported she believes having improved communication with her partner has been very helpful. Client stated previous triggers that would lead her to reach out to her ex was: feeling lonely, her oldest child making comments of wanting her to be with their dad, and when things would be going well with her partner. Client reported she often would sabotage her healthy relationship. Agreed she sometimes struggles with being in a healthy, supportive relationship because it challenges her negative core beliefs. Client stated since being more open and honest with her partner she hasn't had any urges because she talks openly with her partner now. 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 Client feels like she will be able to manage working third shift and coming to IOP. Client agreed it would be helpful for her to work on engaging in self-care while she adjusts to a new schedule. Risks/Concerns:: Denies suicidal ideation, plan or intention to date. future oriented. Progress Toward Goals/Plan:: Progress noted with client reporting improved mood, decreased anxiety, use of skills, and no contact with her ex. Client reports use of opposite action, communicating with her partner honestly, and having improved support from mom has significantly improved her mental health. Client followed through with goals from last individual session and was able to cope in a healthy way when faced with significant stressor last week. Client is to continue IOP to continue use of skills, challenge negative thinking, and prevent decompensation. Client agreeable to call [facility] to set up individual counseling. Client is going to call Dr. Bryan today to establish with psychiatry.
--- NOTE | 2022-12-14 09:04 | BH.SGPN.GN ---
Behaviors/Verbalizations/Mental Status: [] Pt eye contact good, casually dressed, motor activity appropriate, speech normal rate and tone, mood euthymic and fatigued, congruent affect, thoughts linear and intact, no evidence of delusions or hallucinations. Per pt's symptom tracker, pt reports SI as a 1/5 and intent as 1/5 as well. This is within pt established baseline. Client Response/Progress/Benefit: [] Client responded well to session as evidenced by listening attentively to others and sharing thoughts and feelings. Client reported mental health positive as getting her vehicle fixed which has been a stressor. Additional win noted as following through with starting a new full-time job and reported the first day had gone better than she had anticipated. Discussed increased motivation to continue with it as a result. Current stressor noted as having less time to spend with her kids due to the position being 3rd shift. Shared this should be temporary as she anticipates an opportunity to switch shifts in a few weeks. Seemed to benefit from support from peers. Client to continue IOP to continue use of healthy coping skills, maintain mood stability, and prevent decompensation. Narrative Note: []
--- NOTE | 2022-12-14 10:12 | BH.SGPN.GN ---
Behaviors/Verbalizations/Mental Status: []Pt alert and oriented, casually dressed and groomed. Eye contact good. Motor activity appropriate. Speech within normal limits. Affect congruent, mood euthymic and tired. Thoughts linear, logical, no signs of hallucinations or delusions. Client Response/Progress/Benefit: []Pt was an active participant in group discussions. Attentive during psychoeducation on 4 types of conflict styles (Competing, Collaborating, Avoiding, and Accommodating). Worked with group to define conflict and identify how conflict is helpful. With peers identified barriers to addressing or managing conflict which included: not wanting to hurt others, lack of communication skills, and cognitive distortions. Pt believes they use the avoiding style the most. Pt shared she will ?avoid until I snap and then I feel worse.? Benefited from group due to increase insight and awareness of benefits to conflict, conflict styles, and obstacles to managing conflict. Will continue in IOP to prevent decompensation, gain healthier coping skills, and increase self-worth. Narrative Note: []
--- NOTE | 2022-12-14 11:10 | BH.SGPN.GN ---
Behaviors/Verbalizations/Mental Status: [] Eye contact is good. Motor activity is appropriate. Appearance is casual. Speech is Appropriate. Mood is anxious. Affect is congruent. Thoughts are linear and logical. No evidence of psychosis. Client Response/Progress/Benefit: [] Pt was an active participant in group discussions and activity. Attentive during psychoeducation. Pt was engaged during the group activity and practiced conflict resolutions skills with an emphasis on stepping outside her typical conflict style. Along with peers was able to reflect on what conflict resolution skills she used during the activity. Pt chose to continue to work on the conflict resolution skill of not stonewalling for the rest of the week. Benefited from practicing conflict resolution skills. Will continue in IOP to prevent decompensation, stabilize mood, and increase healthy coping. Narrative Note: []
--- NOTE | 2022-12-18 09:00 | BH.SGPN.GN ---
Behaviors/Verbalizations/Mental Status: [] Pt eye contact good, casually dressed, motor activity appropriate, speech normal rate and tone, mood euthymic, congruent affect, thoughts linear and intact, no evidence of delusions or hallucinations. Per pt's symptom tracker, pt reports si as a 1/5 and intent as 1/5 as well. This is within pt established baseline. Client Response/Progress/Benefit: [] Client respond well to session as evidenced by her listening attentively to others and sharing thoughts and feelings. Client reported mental health positive as getting her 5 children ready and to school on time this morning without becoming overwhelmed. Shared preparing what she could ahead of time contributed to her success. Client reported additional positive as completing all the laundry over the weekend. Client stated stressor as finances, identified things within her control she can due to reduce stress associated with this. Seemed to benefit from support from peers. Client to continue IOP to continue use of healthy coping skills, work on setting healthy boundaries, and prevent decompensation. Narrative Note: []
--- NOTE | 2022-12-18 10:10 | BH.SGPN.GN ---
Behaviors/Verbalizations/Mental Status: [] Eye contact is fair. Motor activity is appropriate. Appearance is casual. Speech is Appropriate. Mood is anxious. Affect is congruent. Thoughts are linear and logical. No evidence of psychosis. Client Response/Progress/Benefit: [] Client was an attentive during interactive group discussions by writing notes and sharing when prompted. Attentive during psychoeducation on the six types of boundaries (physical, emotional, intellectual, sexual, time, and material) AEB note-taking. Along with peers contributed to interactive discussion on defining what a boundary is in mental health. Client along with peers identified challenges to setting boundaries which included; fear of other's response, guilt, fear of losing relationships, and lack of confidence. Client along with peers identified the benefits to setting boundaries. Client shared she struggles with setting boundaries because doesn't want others to be upset with her. Client benefited from increased awareness and insight on the importance/benefit to setting health boundaries. Will continue in IOP to challenge negative thinking, increase healthy coping, and prevent decompensation.
--- NOTE | 2022-12-18 14:59 | BH.MDN ---
Multi-Disciplinary Note Note 30-min Individual: Time Started:: 11:35 Date: 12/18/22 Purpose of session/treatment goals addressed:: Purpose of session was to address goals 1 and 2 from MTP. Eye Contact:: Good Motor Activity:: Appropriate Appearance:: Casual Speech:: Appropriate Mood:: Euthymic Affect:: Full Thoughts:: Linear, Logical and No evidence of hallucinations/delusions noted Staff Interventions:: thought challenging, CBT techniques, mindfulness skills, strengths perspective, goal setting and other (self-care) Client Response:: Client shared she has been doing really well since starting her new job at the [employer]. 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 Client stated once she completes IOP she will move to first shift. Client reported noticing significant decrease in her anxiety and improved mood management. Client stated she has not had any urges to reach out to her ex for support. Client stated her partner has been dealing with any interaction with client's ex so that client does not have to be involved. Client stated that decision was actually made that he is not allowed to see the kids unless he follows to the court after he no showed having the kids another time. Client stated she just cannot continue to let him let down their kids anymore. Client reported although can be a lot to have all 5 kids all the time she recognizes their behaviors tend to worsen once they go of to his house and then come back home. Discussed with therapist the importance of self-care and making time for date nights with her partner. Client stated she continues to work on being completely honest and open with her partner which seems to have strengthened their relationship. Client reported she has been utilizing skills like opposite action, breathing techniques, healthy distractions, and challenging distorted thoughts. Client reported she has not engaged in any impulsive action and since starting IOP. Client agreeable to focus in on engaging in self-care for the next week. Risks/Concerns:: Denies suicidal ideation, plan, and intention. Progress Toward Goals/Plan:: Progress noted with client reported decreased anxiety, improved mood management, improved relationship with partner, and increased hopefulness about her future. Client has been adjusting well to new job and is enjoying what she is doing. Client is to continue IOP to continue use of healthy coping skills, improve confidence, and prevent decompensation. Time Stopped:: 12:05
--- NOTE | 2022-12-20 15:00 | BH.MTP_ITS ---
Treatment Plan Review Demographics Date of Admission:: 11/27/22 Date of Treatment Plan Review:: 12/20/22 Admitting Diagnoses:: 1. Major depressive disorder, recurrent, severe without psychosis F33.2 2. PTSD 3. Generalized anxiety disorder 4. Primary support and work issues Current Diagnoses:: 1. Major depressive disorder, recurrent, severe without psychosis F33.2 2. PTSD 3. Generalized anxiety disorder 4. Primary support and work issues Patient Status Patient's Response to Treatment:: Pt has struggled with attending IOP consistently. Pt has been off several times due to not having childcare and for sickness. When pt does attend IOP she is an engaged participant, takes notes, and at times provides contributions to group discussion. Pt does follow through with goals established in individual therapy. Status of Current Problems and Symptoms: Ongoing problems. Continues to report mild to moderate depressed symptoms and moderate anxious symptoms. Pt does rep ort improvement with not having any urges to contact her ex. However, pt does find it stressful when the kids have to go over to visit him because he often tells the kids lies about her or gives them too much information. Pt stated as a result her oldest daughter tends to give pt a harder time once she returns from staying with her father. Pt reports significant improvement in her relationship since she has been completely honest with her partner and they talk openly everyday. Per pt's DSM 5 symptom tracker at review her overall mental health symptoms have decreased by 34%. Progress Problem #1: Problem Name:: depression Status of Goals:: obj 1 - not met. Pt is able to identify healthy coping skills like opposite action, self-care, engaging in hobbies, and asking for help. Per pt's DSM 5 scores at review her depressed symptoms have decreased by 17%. Obj 2 - progress noted, ongoing work encouraged. Pt is starting to have increased awareness of her negative thought patterns and impact thoughts have on her mood. Needs to continue to work on this objective to practice independently challenging distorted thoughts. Team Recommendations:: Team recommends continue current goals and objectives to see consistent treatment progress. Team recommends problem solving with pt on how to manage working 3rd shift while attending IOP in the morning. Problem #2: Problem Name:: Anxiety Status of Goals:: Obj 1 - progress noted, ongoing work encouraged. Pt is able to identify calming skills like breathing, grounding, and mindfulness. struggles with consistent use of skills in the moment. obj 2 - progress noted, ongoing work encouraged. Per pt's DSM 5 cross-cutting measure at review her anxiety scores have decreased by 25%. Team Recommendations:: Team recommends continue current goals and objectives to see consistent treatment progress. Team recommends problem solving with pt on how to manage working 3rd shift while attending IOP in the morning.
== END 2022-12-21 23:59 ==
LOC: BHIOP 08:00
PROVIDERS: PCP Internal Medicine; Referring Provider Psychiatry & Neurology Psychiatry; Visit Provider Psychiatry & Neurology Psychiatry
DX: F33.2 Major depressive disorder, recurrent severe without psychotic features (principal); F43.10 Post-traumatic stress disorder, unspecified; F41.1 Generalized anxiety disorder
CPT/HCPCS: 90792; H2012; H2020; S9480; 90832; 90834; 90837

== ENCOUNTER 2022-12-22 08:29 | Outpatient (RCR) | payer MEDICAID, SELFPAY ==
--- NOTE | 2022-12-28 10:14 | BH.SGPN.GN ---
Behaviors/Verbalizations/Mental Status: []Eye contact is good. Alert and oriented. Motor activity is appropriate. Appearance is casual. grooming is appropriate. Speech is Appropriate. Mood is euthymic. Affect is congruent. Thoughts are linear and logical. No evidence of psychosis or hallucinations. Client Response/Progress/Benefit: []Client was an active participate AEB providing contributions, listening attentively to others, and taking notes throughout. The group identified the impact of emotions on communication such as blaming or externalizing, shutting down, misperceiving the communication, lashing out, and not being able to express oneself. During group activity, client identified feeling anxious when trying to non-verbally communicate information to guide another peer. Pt reflected she did not initially think she would be successful in doing so and did not want anyone to get hurt. Provided insight that situations in which she has limited control often leads to increased anxiety and irritability, but she was able to slow down and do things one task at a time which helped. Client benefited from session by gaining an increased understanding on the importance of managing emotions to continue IOP to further improve mood stability, improve use of skills for better symptom management, and prevent decompensation. Narrative Note: []
--- NOTE | 2022-12-28 11:10 | BH.SGPN.GN ---
Behaviors/Verbalizations/Mental Status: []Pt alert and oriented, casually dressed and groomed. Eye contact good. Motor activity appropriate. Speech within normal limits. Affect congruent, mood euthymic. Thoughts linear, logical, no signs of hallucinations or delusions. Client Response/Progress/Benefit: [] Pt engaged in session AEB pt listening attentively to peers and providing input. Attentive during psychoeducation on 4 zones of regulation. Pt able to identify feelings and behaviors for each zone. Pt identified coping skills one can use to support self in each zone. Reported skills will practice when needs to manage emotions include: starting with small task, positive self-talk, grounding, and breathing. Benefited from increased education on zones of regulation or stages of alertness for emotions and healthy coping skills to use for each zone. Pt to continue IOP to continue use of healthy coping skills, challenge distortions, and prevent decompensation.
--- NOTE | 2022-12-28 15:00 | BH.MDN_ITS ---
Multi-Disciplinary Note Note 30-min Individual: Time Started:: 09:22 Date: 12/28/22 Purpose of session/treatment goals addressed:: Purpose of session was to address goals 1 and 2. Eye Contact:: Good Motor Activity:: Appropriate Appearance:: Casual Speech:: Appropriate Mood:: Euthymic Affect:: Full Thoughts:: Linear, Logical and No evidence of hallucinations/delusions noted Staff Interventions:: CBT techniques, discharge planning, strengths perspective and other (started to discuss maintenance) Client Response:: Client reports she hasn't been to [facility] because she was in the hospital for two days due to complications from having strep throat. Client stated after feeling better she was able to start to do more around the house and her mood started to improve. Client stated she's continuing to have no contact with her ex and states doesn't even have urges to contact him. Client reported sense client and partner have decided to not let the kids see their father until he files in court due to his lack of follow through her daughter is behaving more. Client stated she believes her oldest daughter is starting to figure out that her father is not dependable. Client reported feeling ready for discharge from [facility] next week. Client stated she knows it will be important for her to continue her daily check-ins with her partner, stay away from social media, and continue to utilize her healthy support system. Client reported there is a good chance her family will purchase a pony for the kids and that is something client is looking forward to. Client stated she feels like she's made significant treatment progress with decreased depression, decreased anxiety, and decrease anger. Client stated over the weekend she was in a situation that in the past she would have gone off on the other person for being rude but this time was able to use her skills and walk away. Client reported feels positive to see improvement in her mood regulation. Client stated she's also starting to set more boundaries with her kids and set expectations around the house that she believes is age appropriate. Client stated she did reach out to [facility] to establish a counseling appointment but is waiting to hear back from the counselor. Client stated she has an appointment with Dr. Bryan next month. Risks/Concerns:: Client denies suicidal ideation, plan or intention to date. future oriented. Progress Toward Goals/Plan:: Progress noted with client reporting decreased depression, decreased anxiety, improved emotion regulation, increased healthy coping skills, and improved communication. Client reports improved daily functioning and functioning well while at work. Client states relationship with her partner has strengthened with everything they've gone through. Plan is for client to discharge from [facility] next week. Time Stopped:: 09:48
--- NOTE | 2023-01-04 10:16 | BH.DS ---
Discharge Summary Demographics Date of Admission:: 11/27/22 Discharge Date: 01/04/23 Presenting Problems at Admission:: The patient is a 32-year-old single, female with a history of depression, social anxiety and PTSD who is presents with worsening depression over the past year. She was referred by [facility] to [facility] program. The patient states that she has been texting her ex-boyfriend off-and-on and they have had emotional involvement and states that she knows that he is toxic but she cannot let go of him. Her biggest stress today is that she went to the emergency room for chest pain last night and they found a nodule on her left lung and she has an appointment with the pulmonary doctor to find out what is causing this and her chest pain. She endorses crying spells, sadness, hopelessness, worthlessness, guilt, anhedonia, apathy, decreased concentration, decreased motivation, and passive thoughts of . Anxious symptoms impact ability to leave her house. MH symptoms interfering with ability to complete chores/responsibilities at home. Discharge Diagnoses:: 1. Major depressive disorder, recurrent, severe without psychosis F33.2 2. PTSD 3. Generalized anxiety disorder Reason for Discharge:: Pt no showed three sessions in a row and no showed her last day in IOP. Pt discharged due to multiple no shows in program. Treatment Progress During Treatment & Response: Pt reported significant treatment progress with decreased depression, decreased anxiety, and ability to manage her emotions more effectively. Pt's attendance started to decline once she started working 3rd shift. When pt did attend IOP she appeared to be engaged in session and contributed at times to discussion. Pt did report utilization of healthy coping skills to help her manage her symptoms. Issues Still to be Addressed:: Pt could benefit from reinforcement of healthy coping skills, challenge distortions, and build confidence. Discharge Recommendations/Instructions:: Pt had contacted [facility] to establish with outpatient counseling and was waiting for a phone call back. Pt will continue outpatient psychiatrist Dr. Bryan and has an appointment on 02/04/23. Discharge Handout
== END 2023-01-04 10:05 | disposition home or self-care (01) ==
LOC: BHIOP 08:29
PROVIDERS: PCP Internal Medicine; Referring Provider Psychiatry & Neurology Psychiatry; Visit Provider Psychiatry & Neurology Psychiatry
DX: F33.2 Major depressive disorder, recurrent severe without psychotic features (principal); F43.10 Post-traumatic stress disorder, unspecified; F41.1 Generalized anxiety disorder
CPT/HCPCS: H2012; S9480; 90832